=== PATIENT | male | born 1990 | race Two or more races ===

== ENCOUNTER 2016-09-30 20:07 | Emergency (ER) | payer SELFPAY ==
[2016-09-30] MEDS ORDERED: IBUPROFEN 800 MG TABLET ONE (21:04)
[2016-09-30] MEDS ORDERED: PREDNISONE 20 MG TABLET ONE (21:04)
[2016-09-30] MEDS ORDERED: PROPARACAINE HCL 0.5% 300 GTTS/BOT SOLN.DROP ONE (21:05)
[2016-09-30] MEDS ORDERED: HYDROCODONE/ACETAMINOPHEN 5/325MG TABLET ONE (21:21)
== END 2016-09-30 21:30 | disposition home or self-care (01) ==
LOC: ED 20:07
DX: H16.133 Photokeratitis, bilateral (principal); X32.XXXA Exposure to sunlight, initial encounter; Y93.89 Activity, other specified; Y92.9 Unspecified place or not applicable
CPT/HCPCS: 99283 ×2; A9270 ×3; J7512